=== PATIENT | male | born 1950 | race Caucasian/White ===

== ENCOUNTER 2020-01-24 07:24 | Inpatient (IN) | payer MEDICARE, OTHER ==
[~2020-01-24] VITALS: Ht 177.8 cm; Wt 105.2 kg
[2020-01-24] MEDS ORDERED: NAPROXEN250 MG PO (07:49)
--- NOTE | 2020-01-24 10:00 | NUR ---
PATIENT ARRIVED TO ROOM VIA STRETCHER WITH JEFFY VERNON. TRANSFERRED SELF TO BED STAND AND PIVOT. SLIGHTLY UNSTEADY ON FEET. SOME SLURRING OF SPEACH, BUT OVERALL FEELS WELL. VSS, BUT BP ELEVATED-- REPORTEDLY NORMAL FOR HIM.
--- NOTE | 2020-01-24 10:28 | NUR ---
PATIENT ADMITTED TO MED SURG, ORIENTED TO ROOM. PATIENT DENIES PAIN OR NAUSEA. PATIENT IS ORIENTED X3, PATIENT DOES SLUR WORDS, INDICATES HIS SPOUSE NOTED THIS WAS IMPROVING. PATIENT HAS NUMBNESS AND TINGLING IN RIGHT HAND AND RIGHT FOOT, EQUAL STRENGTH NOTED IN HAND SPORTS THERAPIST, NO DRIFTING NOTED ON ARMS OR LEGS.
--- NOTE | 2020-01-24 10:51 | NUR ---
PATIENT UP TO BATHROOM TO VOID WITH ONE ASSIST. PATIENT IS MODERATELY UNSTEADY ON FEET, SOMEWHAT IMPULSIVE. PATIENT SAID, "I USUALLY FALL DOWN A COUPLE OF TIMES A DAY AT HOME." PATIENT SITTING UP AT BEDSIDE, BED ALARM IS ON.
--- NOTE | 2020-01-24 11:09 | NUR ---
DR. WELLS IN TO SEE PATIENT. PATIENT TO HAVE CAROTID DOPPLER/ECHO. PATIENT IS HOPING TO GO HOME TOMORROW.
--- NOTE | 2020-01-24 11:28 | NUR ---
pt having carotid echo done now. salty arriaza assessed patient and admitted patietn to the room.
--- NOTE | 2020-01-24 13:15 | NUR ---
PT HAS JUST ARRIVED IN FROM ED. TREATING FOR STROKE, PT SAID HIS FEET ARE STARTING TO MOVE AGAIN. WILL LET GET SETTLED IN , GAVE BLESSING. PT THANKED ME WILL FOLLOW
--- NOTE | 2020-01-24 15:51 | NUR ---
pt resting with lights dimmed in room. denies any needs at this time.
--- NOTE | 2020-01-24 17:44 | NUR ---
NEW ED ADMIT. CVA OBSURVATION. RIGHT HAND NUMB AND SLURRED SPEECH BUT REPORTS ITS CLOSE TO BASELINE. ETOH ABUSE-- 1 GALLON LIQUOR/WEEK AND 6 16OZ BEERS/DAY. SALINE LOCKED. PT/OT/ST. STANDBY ASSIST. ALERT AND ORIENTED. TELE 7.
--- NOTE | 2020-01-24 19:45 | NUR ---
CHARGE NURSE ROUNDING NOTE: AWAKE, NO C/O PAIN, CALL LIGHT AND FLUIDS AT BEDSIDE.
--- NOTE | 2020-01-24 21:38 | EKG ---
[facility] [address] [place], [place] [address] Signed Sinus rhythm with marked sinus arrhythmia Otherwise normal ECG No previous ECGs available Confirmed by EUGENE WELLS DO ([id number]) on 01/24/2020 9:37:53 PM Electronically Signed By: EUGENE WELLS DO 01/24/20 2138 PATIENT NAME: OLGAYePAULA Electrocardiogram DATE OF : 50 PHYSICIAN: EUGENE WELLS DO REPORT #: [id number] REPORT IS CONFIDENTIAL AND NOT TO BE RELEASED WITHOUT AUTHORIZATION
--- NOTE | 2020-01-25 03:10 | NUR ---
PATIENT HAS BEEN RESTING WELL SINCE EVENING MED PASS, NO C/O ANYTHING. ONE UNMEASURED VOID, DRANK 200MLS. CALL LIGHT IN REACH. PATIENT GOING BACK TO SLEEP, CALL LIGHT IN REACH.
--- NOTE | 2020-01-25 08:48 | NUR ---
VERY BUSY NIGHT WITH OTHER PATIENT'S, PATIENT HAS MAINLY BEEN INDEPENDANT, BED ALARM JUST TO KNOW WHEN HE GETS UP. HAS HAD NO DEFICITS FOR ME THIS SHIFT AND HAS BEEN TIRED, BUT ORIENTED. PATIENT SAYS HE IS GOING TO NEED TO LEAVE AMA, BECAUSE HE IS FEELING MUCH BETTER AND HAS THINGS HE NEEDS TO GO HOME AND GET DONE. am nURSE AWARE OF THIS REQUEST. CALL LIGHT IN REACH.
--- NOTE | 2020-01-25 09:40 | NUR ---
DR. WELLS IN TO SEE PATIENT.
[2020-01-25] MEDS ORDERED: ASPIRIN81 MG PO (09:51)
[2020-01-25] MEDS ORDERED: LIPITOR40 MG PO (09:51)
[2020-01-25] MEDS ORDERED: NICOTINE PATCH1 EACH TD (09:52)
[2020-01-25] MEDS ORDERED: LISINOPRIL10 MG PO (10:06)
--- NOTE | 2020-01-25 10:34 | NUR ---
ASSESSMENT COMPLETED. PATIENT VERBALIZES NEED TO GO HOME DUE TO PRIOR ENGAGEMENTS. DENIES PAIN AT THIS TIME. CALL LIGHT IN REACH, BED RAILS UP X2. TAKES AM MEDICATIONS PRESCRIBED. DENIES OTHER NEEDS.
== END 2020-01-25 10:20 | disposition home or self-care (01) | DRG 65 ==
LOC: ED 07:24 → MS 07:26
PROVIDERS: ADMIT Student in an Organized Health Care Education/Training Program
DX: I63.59 Cerebral infarction due to unspecified occlusion or stenosis of other cerebral artery (principal); G81.91 Hemiplegia, unspecified affecting right dominant side; R47.81 Slurred speech; I10 Essential (primary) hypertension; F17.210 Nicotine dependence, cigarettes, uncomplicated; F10.20 Alcohol dependence, uncomplicated; K70.10 Alcoholic hepatitis without ascites; M19.91 Primary osteoarthritis, unspecified site
CPT/HCPCS: 36415; 70450; 71045; 80053; 80061; 83036; 83735; 84484; 85025; 85610; 85730; 93005; 93010; 93306; 93880; 97162; 99285-25; C9803; J1650; U0002

== ENCOUNTER 2020-02-12 17:10 | Emergency (ER) | payer MEDICARE ==
[~2020-02-12] VITALS: Ht 182.9 cm; Wt 105.2 kg
[~2020-02-12 17:10] MED LIST: ASPIRIN81 MG PO; LIPITOR40 MG PO; LISINOPRIL10 MG PO; NAPROXEN250 MG PO; NICOTINE PATCH1 EACH TD
--- OUTSIDE RECORDS SUMMARY | 2020-02-12 17:14 | XMS ---
PreManage Notification: PAULA DELAROSA Security Engineer Conductor Events No recent Security Events currently on file CRITERIA MET - [facility] - 2 Visits in 30 Days CARE PROVIDERS There are no care providers on record at this time. Chau has no Care Guidelines for this patient. Tamra VISIT COUNT (12 MO.) 2 [facility] [place] [facility]. TOTAL 2 NOTE: Visits indicate total known visits. ED/C VISIT TRACKING (12 MO.) 02/12/2020 17:[address] [facility] [place] TYPE: Emergency COMPLAINT: - MEDICATION REFILL 01/24/2020 07:25 [facility] TYPE: Emergency COMPLAINT: - STROKE SYMPTOMS INPATIENT VISIT TRACKING (12 MO.) 01/24/2020 11:37 [facility] [place] TYPE: Medical Surgical COMPLAINT: - STROKE DIAGNOSES: - Primary osteoarthritis, unspecified site - Essential (primary) hypertension - Alcoholic hepatitis without ascites - Alcohol dependence, uncomplicated - Alcoholic hepatitis without ascites - Essential (primary) hypertension - Hemiplegia, unspecified affecting right dominant side - Slurred speech - Nicotine dependence, cigarettes, uncomplicated - Hemiplegia, unspecified affecting right dominant side - Cerebral infarction due to unspecified occlusion or stenosis - Nicotine dependence, cigarettes, uncomplicated - Slurred speech - Primary osteoarthritis, unspecified site - Alcohol dependence, uncomplicated [email or web address]
== END 2020-02-12 17:40 | disposition home or self-care (01) ==
LOC: ED 17:10
DX: Z76.0 Encounter for issue of repeat prescription (principal)

== ENCOUNTER 2024-05-25 14:27 | Inpatient (IN) | payer MEDICARE ==
[~2024-05-25] VITALS: Ht 182.9 cm; Wt 92.6 kg
[2024-05-25] MEDS ORDERED: methylPREDNISolone SOD SUCC 125 MG/2 ML VIAL IV ONE (14:45)
[2024-05-25] MEDS ORDERED: ALBUTEROL/IPRATROPIUM 3 ML NEB INH ONE (14:45)
[2024-05-25 14:57] LABS: HEMATOCRIT 39.7 % (35.0-50.0); HEMOGLOBIN 13.9 g/dL (12.0-18.0); MCH 33.4 (27-36); MCHC 35.1 g/dl (30-36); MCV 95.1 fl (81-99); PLATELET COUNT 103 K/uL (140-440); RBC 4.18 M/ul (4.3-5.7); RDW 13.2 (10.5-15.0)
[2024-05-25 15:00] LABS: PARTIAL THROMBOPLASTIN TIME 30.3 Sec (22.9-41.3)
[2024-05-25] MEDS ORDERED: DILTIAZEM HCl/D5W 125 ML IV ONE (15:00)
[2024-05-25] MEDS ORDERED: dilTIAZem HCL 25 MG/5 ML VIAL IV ONE (15:00)
[2024-05-25 15:01] LABS: INR 1.5 (0.80-1.30); PROTIME 17.3 Sec (11.2-14.2)
[2024-05-25 15:10] LABS: BANDS, MANUAL DIFF 1; LYMPHOCYTES, MANUAL DIFF 1; MONOCYTES, MANUAL DIFF 2; NEUTROPHILS, MANUAL DIFF 96
[2024-05-25 15:14] LABS: ALBUMIN 2.9 g/dL (3.4-5.0); ALBUMIN/GLOBULIN RATIO 0.76 (1.1-2.4); ALCOHOL, MEDICAL <3 ng/dL (<3); ALKALINE PHOSPHATASE 98 U/L (46-116); ALT (SGPT) 13 U/L (14-59); ANION GAP 17.7 (7-21); AST (SGOT) 29 U/L (15-37); BILIRUBIN, TOTAL 2.6 ng/dL (0.2-1.0); CALCIUM 8.7 mg/dL (8.5-10.1); CARBON DIOXIDE 23 mmol/L (21-32); CHLORIDE 86 mmol/L (98-107); CREATININE, SERUM 1.25 mg/dL (0.70-1.30); GLOMERULAR FILTRATION RATE,EST 61 mL/min (>60); POTASSIUM 3.7 mmol/L (3.5-5.1); PROTEIN, TOTAL 6.7 g/dL (6.4-8.2); TSH, 3RD GENERATION 1.229 uIU/mL (0.358-3.740); UREA NITROGEN 19 mg/dL (7-18)
[2024-05-25] MEDS ORDERED: CEFTRIAXONE/SODIUM CHLORIDE 2 GM/100 ML PIGGYBACK IV ONE (15:30)
[2024-05-25] MEDS ORDERED: AZITHROMYCIN/DEXTROSE 500 MG/250 ML PIGGYBACK IV ONE (15:30)
[2024-05-25 15:32] LABS: INFLUENZA B NAA NEGATIVE (NEGATIVE); RESPIRATORY SYNCYTIAL VIR NAA NEGATIVE (NEGATIVE)
[2024-05-25] MEDS ORDERED: SODIUM CHLORIDE 0.9% 1,000 ML IV PRN (15:45)
[2024-05-25 16:02] LABS: LACTIC ACID, BLOOD 2.9 mmol/L (0.4-2.0)
[2024-05-25 17:28] LABS: LACTIC ACID, BLOOD 2.5 mmol/L (0.4-2.0)
[2024-05-25] MEDS ORDERED: LIDOCAINE 2% VISCOUS 6 ML SYR TOP ONE (17:30)
[2024-05-25 17:51] LABS: BILIRUBIN, URINE POSITIVE (negative); BLOOD/HGB, URINE LARGE (Negative); KETONE, URINE TRACE (Negative); LEUK ESTERASE, URINE NEGATIVE (negative); NITRITE, URINE POSITIVE (negative); PH, URINE 5.5 (5-7)
[2024-05-25 17:56] LABS: EPITHELIAL CELLS, URINE 0 /lpf (0-1+)
[2024-05-25 17:58] LABS: CRYSTALS, URINE NONE SEEN (0-1+); RED BLOOD CELLS, URINE >50 /hpf (0-5)
[2024-05-25 18:01] LABS: BACTERIA, URINE 1+ /hpf (negative); CASTS, URINE NONE SEEN \\lpf; COLLECTION TYPE, URINE CLEAN CATCH; REFLEX CULTURE, URINE No (No)
[2024-05-25 18:13] LABS: AMPHETAMINES, URINE NEGATIVE (NEGATIVE); BARBITURATES, URINE NEGATIVE (NEGATIVE); BENZODIAZEPINE, URINE NEGATIVE (NEGATIVE); BUPRENORPHINE, URINE NEGATIVE (NEGATIVE); CANNABINOID, URINE NEGATIVE (NEGATIVE); COCAINE, URINE NEGATIVE (NEGATIVE); ECSTASY, URINE NEGATIVE (NEGATIVE); FENTANYL, URINE NEGATIVE (NEGATIVE); METHADONE, URINE NEGATIVE (NEGATIVE); OPIATES, URINE NEGATIVE (NEGATIVE); OXYCODONE, URINE NEGATIVE (NEGATIVE); PHENCYCLIDINE, URINE NEGATIVE (NEGATIVE)
[2024-05-25] MEDS ORDERED: LACTATED RINGER'S 1,000 ML IV SCH (19:00)
[2024-05-25] MEDS ORDERED: ACETAMINOPHEN 325 MG TAB PO PRN (19:00)
[2024-05-25] MEDS ORDERED: NICOTINE POLACRILEX 4 MG LOZENGE BUCCAL PRN (19:00)
[2024-05-25] MEDS ORDERED: NICOTINE 14 MG/24 HR 1 EA TDSY TD SCH (19:01)
[2024-05-25] MEDS ORDERED: SODIUM CHLORIDE 0.9% 1,000 ML IV SCH (19:15)
[2024-05-25] MEDS ORDERED: LORazepam 2 MG/ML VIAL IV/IM PRN (20:00)
[2024-05-25] MEDS ORDERED: ALBUTEROL/IPRATROPIUM 3 ML NEB INH SCH (20:00)
[2024-05-25 20:11] VITALS: BP 129/76
--- NOTE | 2024-05-25 20:20 | NUR ---
pt ARRIVED TO THE FLOOR VIA STRETCHER. pt SCOOTED FROM THE STRETCHER TO THE BED ON HIS OWN. CHIEF DIETITIAN AND THIS RN IN TO DO ASSESSMENT AND VITAL SIGNS AND ADMISSION. pt ALERT AND ORIENTED. pt LUNG SOUNDS ARE CLEAR. NO OTHER NEEDS AT THIS TIME. CALL LIGHT WITHIN REACH.
[2024-05-25] MEDS ORDERED: APIXABAN 5 MG TAB PO SCH (21:00)
[2024-05-25] MEDS ORDERED: ATORVASTATIN 40 MG TAB PO SCH (21:00)
[2024-05-25] MEDS ORDERED: MELATONIN 3 MG TAB PO PRN (21:00)
[2024-05-25] MEDS ORDERED: BUDESONIDE 0.5 MG/2 ML VIAL INH SCH (21:39)
[2024-05-25] MEDS ORDERED: metroNIDAZOLE 250 MG TAB PO SCH (22:00)
--- NOTE | 2024-05-25 22:00 | NUR ---
pt RESTING IN THE BED. pt DENIES ANY NEEDS AT THIS TIME. CALL LIGHT WITHIN REACH.
[2024-05-25] MEDS ORDERED: ALBUTEROL SULFATE 0.083% 3 ML VIAL INH PRN (23:00)
[2024-05-25 23:39] VITALS: BP 129/76
[2024-05-26] VITALS (11 sets, daily range): BP systolic 94–130; BP diastolic 53–66
--- NOTE | 2024-05-26 01:30 | NUR ---
IN RM TO DO VS. NEEDING TO PEE DO TO PROTOCOL. pt STATES HE DOESN'T THINK HE COULD GO. BLADDER SCANNED AT 375. DENIES THE NEED TO GO. NO OTHER NEEDS AT THIS TIME. CALL LIGHT WITHIN REACH.
--- NOTE | 2024-05-26 02:55 | NUR ---
PHONE CALL PLACED TO MD ABOUT pt BLADDER SCAN VOLUME. MD PLACED NEW ORDERS. ORDERS VERIFIED WITH REPEAT BACK METHOD.
--- NOTE | 2024-05-26 02:55 | NUR ---
MANAGER STRATEGY & ACCOUNT BLADDER SCANNED PT AT PRIMARY RN REQUEST. BLADDERSCANNER SHOWED 425 ML. RN NOTIFED. PT STATES THAT HE DOESNT FEEL THE NEED TO GO. PT STATES NO NEEDS AT THIS TIME. CALL LIGHT WITHIN REACH.
--- NOTE | 2024-05-26 03:38 | NUR ---
STRAIGHT CATH ATTEMPTED BY THIS BUDDHIST MONK WITH 14F STRAIGHT CATH KIT, RESISTANCE MET. CATH UNSUCCESSFUL. BLOOD PRESENT ON TIP OF CATH WHEN REMOVED FROM URETHRA. ATTEMPT MADE WITH 14F COUDE TIP SUCCESSFUL. IMMEDIATE RETURN OF ~500 ML TEA COLORED, FOUL SMELLING URINE. PT TOLERATED WELL. CATH REMOVED. SMALL AMOUNT OF BLOOD PRESENT ON COUDE CATH, AND AT TIP OF PENIS. CLEANSED. PT DENIES FURTHER NEEDS. CALLLIGHT IN REACH. BED ALARM ACTIVE. ROOM IN VIEW OF RN STATION.
[2024-05-26 05:22] LABS: BASOPHILS 0.2 % (0-2); EOSINOPHILS 0.1 % (0-6); HEMATOCRIT 34.6 % (35.0-50.0); HEMOGLOBIN 12.5 g/dL (12.0-18.0); LYMPHOCYTES 1.2 % (24-44); MCHC 36.2 g/dl (30-36); MCV 93.9 fl (81-99); MONOCYTES 2.6 % (0-12); NEUTROPHILS 95.9 % (39-80); PLATELET COUNT 74 K/uL (140-440); RBC 3.68 M/ul (4.3-5.7); RDW 13.2 (10.5-15.0)
[2024-05-26 05:33] LABS: ANION GAP 14.5 (7-21); BUN/CREATININE RATIO 21.35 (6.0-28.6); CALCIUM 8.4 mg/dL (8.5-10.1); CREATININE, SERUM 1.03 mg/dL (0.70-1.30); MAGNESIUM 1.3 mg/dL (1.8-2.4); PHOSPHORUS, INORGANIC 2.6 mg/dL (2.5-4.9); POTASSIUM 3.5 mmol/L (3.5-5.1)
--- NOTE | 2024-05-26 05:36 | NUR ---
VITAL SIGNS DONE. pt RESTING IN THE BED. pt DENIES THE NEED TO PEE. pt DENIES ANY OTHER NEEDS AT THIS TIME. CALL LIGHT WITHIN REACH.
--- NOTE | 2024-05-26 07:46 | NUR ---
GOT REPORT FROM FRENCH TEACHER NURSE.
[2024-05-26] MEDS ORDERED: ALBUTEROL/IPRATROPIUM 3 ML NEB INH SCH (08:00)
--- NOTE | 2024-05-26 08:16 | NUR ---
INTO CHECK ON PATIENT.MORNING MEDICAITONS GIVEN. LISINOPRIL HELD BECAUSE OF BLOOD PRESSURE. PATIENT DENIED WANTING ANYTHING TO EAT WITH PILLS. ANTIBIOTIC IV RUNNING. PATIENT ROOM CLEANED UP. BED IN LOW POSTION. CALL LIGHT WITHIN REACH. PATIENT DENIES ANY OTHER CARES AT THIS TIME. RT IN TO GIVE BREATHING TREATMENT. PATIENT WAS ON PHONE WITH FRIEND AND OVERHEARD HIM TELL HIM THAT HE WOULD BE READY TO LEAVE TODAY HE WAS NOT GOING TO STAY.
[2024-05-26] MEDS ORDERED: THIAMINE HCL 200 MG/2 ML VIAL IV SCH (09:00)
[2024-05-26] MEDS ORDERED: AZITHROMYCIN 250 MG TAB PO SCH (09:00)
[2024-05-26] MEDS ORDERED: TAMSULOSIN HCL 0.4 MG CAP PO SCH (09:00)
[2024-05-26] MEDS ORDERED: lisinopriL 10 MG TAB PO SCH (09:00)
[2024-05-26] MEDS ORDERED: CEFTRIAXONE/SODIUM CHLORIDE 2 GM/100 ML PIGGYBACK IV SCH (09:00)
[2024-05-26] MEDS ORDERED: THIAMINE HCL 100 MG TAB PO SCH (09:00)
[2024-05-26] MEDS ORDERED: METOPROLOL SUCCINATE 25 MG TABCR PO SCH (09:00)
[2024-05-26] MEDS ORDERED: predniSONE 20 MG TAB PO SCH (09:00)
[2024-05-26] MEDS ORDERED: THIAMINE HCL 100 MG in SODIUM CHLORIDE 0.9% 100 ML IV SCH (09:00)
--- NOTE | 2024-05-26 09:52 | NUR ---
MORNING ASSESSEMENT DONE. AT BEDSIDE. PATIENT IS WAITING FOR PT THIS MORNING. PATIENT HAS IV FLUIDS RUNNING. PATIENT ATE A GOOD BREAKFAST. PATIENT STATES HE DOES NOT FEEL LIKE HE NEEDS TO URINATE. PATIENT HAS NICOTINE PATCH ON HIS RIGHT SHOULDER. RA. BED ALARM ON. FRESH WATER GIVEN. LIGHTS TURNED ON. TELE LEADS ON.
[2024-05-26] MEDS ORDERED: MAGNESIUM SULFATE 2 GM/50 ML BAG IV ONE (10:00)
[2024-05-26] MEDS ORDERED: POLYETHYLENE GLYCOL 3350 1 PACKET PO SCH (10:40)
[2024-05-26] MEDS ORDERED: SENNOSIDES/DOCUSATE 1 EA TAB PO SCH (10:41)
[2024-05-26] MEDS ORDERED: GUAIFENESIN/DEXTROMETHORPHAN 5 ML SYRUP PO PRN (11:15)
[2024-05-26] MEDS ORDERED: hydrOXYzine pamoate 25 MG CAP PO PRN (11:15)
[2024-05-26] MEDS ORDERED: ATORVASTATIN CA80 MG PO (11:28)
[2024-05-26] MEDS ORDERED: METOPROLOL SUCC25 MG PO (11:29)
--- NOTE | 2024-05-26 11:42 | NUR ---
PATIENT HAS NOT HAD A BOWEL MOVEMENT SINCE 05.22.24. PER PATIENT HE GOES EACH DAY. MEDICATIONS GIVEN. SEE EMAR. PATIENT UP AND IN CHAIR.
[2024-05-26] MEDS ORDERED: PHARMACY RENAL DOSE ADJUSTMENT 1 DOSE MISC PO SCH (12:00)
--- NOTE | 2024-05-26 13:30 | NUR ---
REPORT RECEIVED FROM ELKIN RN - PRIMARY CARE ASSUMED FOR PT. PT RESTING IN RECLINER WITH CALL LIGHT AT SIDE.
--- NOTE | 2024-05-26 16:23 | NUR ---
MED REC COMPLETE
[2024-05-26] MEDS ORDERED: LIDOCAINE 2% VISCOUS 6 ML SYR TOP PRN (17:00)
--- NOTE | 2024-05-26 17:10 | NUR ---
PATIENT REFUSED DINNER, NO VOID ALL DAY. NURSE NOTIFIED.
--- NOTE | 2024-05-26 17:37 | NUR ---
NOTIFIED BY TELEPHONE OF PT INABILITY TO VOID URINE WITH ZERO OUTPUT SINCE STRAIGHT CATH IN AM. ORDER RECEIVED FOR INDWELLING CATHETER R/T CHRONIC OBSTRUCTION. PT ON ABX CURRENTLY FOR UTI RELATED TO INABILTY TO VOID FREQUENTLY AT HOME.
--- NOTE | 2024-05-26 19:33 | NUR ---
RECEIVED REPORT FROM DAY SHIFT RN. PATIENT IS RESTING IN BED WATCHING TV. PATIENT DENIES ANY NEEDS. CALL LIGHT IN REACH.
--- NOTE | 2024-05-26 20:23 | NUR ---
PATIENTS VITALS TAKEN AND RECORDED. PATIENTS SEVERINO EMPTIED AND SEVERINO CARE COMPLETED. PATIENTS INTAKE AND OUTPUT RECORDED. ASSESMENT COMPLETED. PATIENTS IV INFUSING PER ORDER. PATIENTS PM MEDS GIVEN PER ORDER. PATIENT DENIES ANY PAIN OR NAUSEA. UPDATE PATIENT ON PLAN OF CARE AND ANSWERED ALL QUESTIONS. PATIENT DENIES ANY FURTHER NEEDS. AT BEDSIDE. PATIENTS CALL LIGHT AND BELONGINGS ARE WITHIN REACH.
--- NOTE | 2024-05-26 22:08 | NUR ---
PATIENT REPORTS PAIN IN HIS HANDS, PRN MEDICATION GIVEN PER ORDER. PATIENT REQUESTING SLEEP AID, PNR MEDICATION GIVEN PER ORDER. PATIENTS LIGHTS TURNED OFF. FRESH ICE WATER PROVIDED. PATIENT DENIES ANY FURTHER NEEDS. CALL LIGHT IN REACH. BED ALARM ON FOR SAFETY. SEVERINO DRAINING AYDIN COLORED URINE. IV INFUSING PER ORDER.
--- NOTE | 2024-05-26 22:45 | NUR ---
PATIENT IS RESTING IN BED WITH EYES CLOSED, RR 15. CALL LIGHT IN REACH. BED ALARM ON FOR SAFETY. IV INFUSING PER ORDER.
[2024-05-27] VITALS (10 sets, daily range): BP systolic 97–128; BP diastolic 54–80
--- NOTE | 2024-05-27 00:07 | NUR ---
PATIENT AWOKE WHEN THIS RN ENTERED ROOM TO ROUND ON PATIENT. PATIENT DENIES ANY PAIN OR SOB. PATIENT PROVIDED FRESH ICE WATER. PATIENT DENIES ANY FURTHER NEEDS. CALL LIGHT IN REACH. IV INFUSING PER ORDER. BED WALRM ON FOR PATIENT SAFETY.
--- NOTE | 2024-05-27 02:57 | NUR ---
PATIENTS VITALS TAKEN AND RECORDED. SEVERINO EMPTIED. INTAKE AND OUTPUT RECORDED. IV INFUSING PER ORDER. PATIENT DENIES ANY NEEDS. CALL RAGHU EAST. BED ALARM ON FOR SAFETY.
--- NOTE | 2024-05-27 03:59 | NUR ---
PATIENT IS RESTING IN BED WITH EYES CLOSED, RR 17. TELE #1, HR 71. CALL LIGHT IN REACH. BED ALARM ON FOR SAFETY. IV INFUSING PER ORDER.
[2024-05-27 05:50] LABS: BASOPHILS 0.2 % (0-2); EOSINOPHILS 0.1 % (0-6); HEMATOCRIT 32.5 % (35.0-50.0); HEMOGLOBIN 11.6 g/dL (12.0-18.0); LYMPHOCYTES 2.4 % (24-44); MCH 33.6 (27-36); MCHC 35.7 g/dl (30-36); MCV 94.1 fl (81-99); MONOCYTES 4.6 % (0-12); NEUTROPHILS 92.7 % (39-80); PLATELET COUNT 71 K/uL (140-440); RBC 3.45 M/ul (4.3-5.7); RDW 13.1 (10.5-15.0)
[2024-05-27 05:58] LABS: ANION GAP 10.3 (7-21); BUN/CREATININE RATIO 27.84 (6.0-28.6); CALCIUM 8.8 mg/dL (8.5-10.1); CREATININE, SERUM 0.79 mg/dL (0.70-1.30); POTASSIUM 3.3 mmol/L (3.5-5.1)
[2024-05-27 06:03] LABS: MAGNESIUM 1.8 mg/dL (1.8-2.4); PHOSPHORUS, INORGANIC 2.6 mg/dL (2.5-4.9)
--- NOTE | 2024-05-27 06:59 | NUR ---
PATIENTS VITALS TAKEN AND RECORDED. INTAKE AND OUTPUT RECORDED. PATIENT DENIES ANY PAIN OR SOB. PATIENT DENIES ANY NEEDS. CALL LIGHT IN REACH. COFFEE PROVIDED. IV INFUSING PER ORDER. BED ALARM ON FOR SAFETY.
--- NOTE | 2024-05-27 07:45 | NUR ---
REPORT RECEIVED FROM NIGHT RN - PT RESTING IN BED AWAKE WATCHING TV. CALL LIGHT IN REACH, DENIES NEEDS AT THIS TIME.
--- NOTE | 2024-05-27 08:07 | NUR ---
Board has been updated and call light has been placed within reach. Call light has been placed within reach
[2024-05-27] MEDS ORDERED: POTASSIUM CHLORIDE 10 MEQ TABCR PO ONE (09:00)
--- NOTE | 2024-05-27 09:51 | NUR ---
ASSESSMENT COMPLETE - PT SITTING UP ON EDGE OF BED WORKING WITH PHYSICAL THERAPY. HR ELEVATED WITH ANY MOVEMENT TO 120'S. SP02 WHILE AMBULATING 92% ON ROOM AIR HOWEVER HE IS SOB WITH EXP WHEEZING. PT UNSTEADY ON FEET WITH USING FWW, PT IS NOT RECEPTIVE TO INSTRUCTION.
[2024-05-27] MEDS ORDERED: FOLIC ACID 1 MG TAB PO SCH (10:00)
[2024-05-27] MEDS ORDERED: CYANOCOBALAMIN 1,000 MCG TAB PO SCH (10:00)
--- NOTE | 2024-05-27 12:15 | EKG ---
[facility] [address] [place] [address] Signed Atrial fibrillation with rapid ventricular response with premature ventricular or aberrantly conducted complexes Abnormal ECG When compared with ECG of 24-JAN-2020 07:45, Atrial fibrillation has replaced Sinus rhythm Confirmed by Mckinley Menjivar MD ([id number]) on 05/27/2024 12:15:43 PM Electronically Signed By: MCKINLEY MENJIVAR DO 05/27/24 1215 PATIENT NAME: OLGAYePAULAALFONSO RAMON Electrocardiogram DATE OF : 50 PHYSICIAN: MCKINLEY MENJIVAR DO REPORT #: [id number] REPORT IS CONFIDENTIAL AND NOT TO BE RELEASED WITHOUT AUTHORIZATION
[2024-05-27 19:19] LABS: BUN/CREATININE RATIO 28.12 (6.0-28.6); CALCIUM 8.4 mg/dL (8.5-10.1); CREATININE, SERUM 0.96 mg/dL (0.70-1.30); MAGNESIUM 1.8 mg/dL (1.8-2.4)
--- NOTE | 2024-05-27 19:47 | NUR ---
RECEIVED REPORT FROM DAY SHIFT RN. PATIENT INCONT OIF STOOL. PATIENT ASSISTED TO THE BR A 1PA W/FWW. PATIENT HAD LOOSE STOOL. PATIENTS UNDERWEAR THREW AWAY PER PATIENT REQUEST. PATIENT DAX IN BED RESTING. PATIENT NOTED TO BE SOB W/ACTIVITY. PATIENT SATURATIONS CHECKED AND PATIENTS OXYGEN IS 88 AND RECOVERED TO 95%. PATIENT REMAINS ON RA. PATIENT IS BACK IN BED RESTING. PATIENT DENIES ANY FURTHER NEEDS. CALL LIGHT IN REACH. IV INFUSING PER ORDER. BED ALARM ON FOR SAFETY.
--- NOTE | 2024-05-27 20:50 | NUR ---
PATIENTS OM MEDS GIVEN PER ORDER. IV INFUSING PER ORDER. PATIENT DENIES ANY PAIN. RT INROOM TO EVAL PATIENT. PATIENT RECEIVING NEB TX. RT INTRUCTING PATIENT ON ACAPELLA. PATIENT NOTED TO HAVE INCREASED SPUTUM. PATIENT INSTUCTED TO COUGH UPO SPUTUM. PATIENT VERBALIZED UNDERSTANDING. PATIENT ASSESMENT COMPELTED. IV INFUSING PER ORDER. PATIENT DENIES ANY NEEDS. CALL LIGHT IN REACH. BED ALARM ON FOR SAFETY.
--- NOTE | 2024-05-27 21:37 | NUR ---
PATIENT IS RESTING IN BED WATCHING TV. PATIENT IS RESTING IN BED WATCHING TV. PATIENTS LIGHTS TURNED OFF AND WARM BLANKET PROVIDED. IV INFUSING PER ORDER. PATIENT DENIES ANY NEEDS. CALL LIGHT IN REACH. BED ALARM ON FOR SAFETY.
--- NOTE | 2024-05-27 22:06 | NUR ---
PATIENT IS RESTING IN BED WITH EYES CLOSED, RR 18. CALL LIGHT IN REACH. IV INFUSING PER ORDER BED ALARM ON FOR SAFETY.
[2024-05-27] MEDS ORDERED: INHALER, ASSIST DEVICES 1 EACH SPACER MISC SCH (23:00)
[2024-05-28] VITALS (7 sets, daily range): BP systolic 120–139; BP diastolic 65–80
--- NOTE | 2024-05-28 00:04 | NUR ---
PATIENT IS RESTING IN BED WITH EYES CLSOED, RR 17. TELE #1, HR 77. CALL LIGHT IN REACH. BED ALARM ON OFR SAFETY. IV INFUSING PER ORDER.
--- NOTE | 2024-05-28 00:43 | NUR ---
BED ALARM ALERTED STAFF. PATIENT ASSISTED TO THE BR A 1PA W/FWW. PATIENT HAD MEDIUM LOOSE BM. PATIENT IS BACK IN BED RESTING. PATIENT DENIES ANY PAIN. VITALS TAKEN AND RECORDED. INTAKE AND OUTPUT RECORDED. IV INFUSING PER ORDER. PATIENT DENIES ANY FURTHER NEEDS. SIDNEY LIGHT IN REACH. BED ALARM ON FOR SAFETY.
--- NOTE | 2024-05-28 01:55 | NUR ---
PATIENT IS RESTING IN BED WITH EYES CLOSED, RR 17. TELE #1, HR 77. NAD NOTED. CALL LIGHT IN REACH. BED ALARM ON FOR SAFETY. IV INFUSING PER ORDER.
--- NOTE | 2024-05-28 04:00 | NUR ---
PATIENT IS RESTING IN BED WITH EYES CLSOED, RR 17. CALL LIGHT IN REACH. BED ALARM ON FOR SAFETY.
--- NOTE | 2024-05-28 05:08 | NUR ---
PATIENTS BED ALARM SOUNDED. PATIENT TRYING TO REACH PHONE. PATIENT ASSISTED TO GET PHONE. PATIENT IS AAOX4. PATIENT DENIES ANY PAIN OR SOB. PATIENTS VITLAS TAKEN ADN RECORDED. SEVERINO EMPTIED. INTAKE AND OUTPUT RECORDED. COFFEE PROVIDED. PATIENTS QUESTIONS ASNWERED ABOUT CATHETER AND NEED TO POSSIBLY SEE UROLOGIST. PATIENT VERBALIZED UNDERSTANDING. PATIENT DENIES ANY FURTHER NEEDS. CALL LIGHT IN REACH. BED ALARM ON FOR SAFETY. IV INFUSING PER ORDER.
[2024-05-28 05:26] LABS: BASOPHILS 0.2 % (0-2); HEMATOCRIT 33.4 % (35.0-50.0); HEMOGLOBIN 11.8 g/dL (12.0-18.0); LYMPHOCYTES 4.7 % (24-44); MCH 33.5 (27-36); MCHC 35.5 g/dl (30-36); MCV 94.5 fl (81-99); NEUTROPHILS 89.1 % (39-80); PLATELET COUNT 91 K/uL (140-440); RBC 3.53 M/ul (4.3-5.7); RDW 13.2 (10.5-15.0)
[2024-05-28 05:50] LABS: ANION GAP 11.6 (7-21); BUN/CREATININE RATIO 25.64 (6.0-28.6); CALCIUM 8.3 mg/dL (8.5-10.1); CREATININE, SERUM 0.78 mg/dL (0.70-1.30); MAGNESIUM 1.7 mg/dL (1.8-2.4); POTASSIUM 3.6 mmol/L (3.5-5.1)
--- NOTE | 2024-05-28 06:33 | NUR ---
PATIENT IS RESTING IN BED WATCHING TV AND DRINKING COFFEE. PATIENT DENIES ANY NEEDS. CALL LIGHT IN REACH. IV INFUSING PER ORDER. BED ALARM ON FOR SAFETY.
--- NOTE | 2024-05-28 07:30 | NUR ---
UR CLINICAL REVIEW: 2 MN FOR [facility]ERSALUS-MEETS INPT CRITERIA FOR PNEUMONIA MEDICARE INPT 05/25/24 @ 1901 ORDER MATCHES REG NO AUTH REQUIRED PER MEDICARE GUIDELINES DISCHARGE TO HOME ANTICIPATED IN 1-2 DAYS
--- NOTE | 2024-05-28 07:37 | NUR ---
REPORT RECEIVED FROM NIGHT RN - PT AWAKE IN BED WATCHING TV. PT STATES HE DOESNT WANT BREAKFAST IN FEAR IT WILL MAKE HIM HAVE MORE BM. PT REQUIRING CONTINUED EXPLANATION/EDUCATION OF DISEASE PROCESS. DENIES NEEDS AT THIS TIME. CALL LIGHT IN REACH.
--- NOTE | 2024-05-28 09:15 | NUR ---
PT UP IN CHAIR, DID NOT EAT BREAKFAST. PT NEEDING CONTINUED EDUCATION ABOUT DISEASE PROCESS, LACK OF COMPREHENSION REGARDING TODAYS LAB RESULTS AND MEDICATION USES. CURRENTLY WORKING WITH OT IN ROOM.
--- NOTE | 2024-05-28 10:05 | NUR ---
Upon entering the room Mr Morales is found in the bedside chair, awake and alert. IMM letter explained to the patient, Derick expresses his desire to "go home today", explained that this is a decision made by the hospitalist, Derick states "I am ready to go home, I want to go home." Mr [facility] willingly signs his IMM letter, again reinterating that he wants to go home. A signed copy of the letter is given to Derick. Derick has no further questions for this RN regarding his IMM letter.
--- NOTE | 2024-05-28 10:52 | NUR ---
PATIENT CALLED THIS MORNING BEFORE BREAKFAST GOT HERE TO USE THE BATHROOM AFTER HE WAS DONE THAN WE WALKED TO HIS CHAIR PATIENT USING HIS WALKER.
--- NOTE | 2024-05-28 12:13 | NUR ---
ALERT AND ORIENTED IN BED. STATES HE LIVES IN 3 STORY HOME WITH , BERNIE, AND ROOMMATE. PATIENT HAS BATHROOM AND BEDROOM ON MAIN LEVEL. HE HAS A CANE AND A ROLLATER BUT DOES NOT USE EITHER. HE DRIVES BASELINE WITHOUT ISSUES. DENIES [employer] FINANCIAL HARDSHIP WITH PAYING UTILITIES, OBTAINING FOOD OR MEDICATIONS. DISCUSSED PATIENT NEED FOR OUTPATIENT THERAPIES. STATES HE IS OK WITH GOING TO [facility] OUTPATIENT PT FOR THERAPIES. HE WAS UNDER THE IMPRESSION HE COULD HAVE HOME HEALTH, DISCUSSED QUALIFICATIONS FOR HOME HEALTH AND INFORMED PATIENT HE DOES NOT QUALIFY SINCE HE REMAINS ABLE TO LEAVE HIS HOME. VERBALIZES UNDERSTANDING. PLANS TO DC TO HOME WITH WHEN STABLE.
--- NOTE | 2024-05-28 12:20 | NUR ---
FIELD TAX AUDITOR IN ROOM TO COMPLETE STUDY.
[2024-05-28] MEDS ORDERED: PREDNISONE20 MG PO (13:52)
[2024-05-28] MEDS ORDERED: CEFUROXIME500 MG PO (13:53)
[2024-05-28] MEDS ORDERED: METRONIDAZOLE500 MG PO (13:53)
[2024-05-28] MEDS ORDERED: SYMBICORT 16010.2 GM INH (13:54)
[2024-05-28] MEDS ORDERED: ELIQUIS5 MG PO (13:54)
--- NOTE | 2024-05-28 14:56 | NUR ---
PT NOT AVAILABLE FOR VISIT. PROVIDED PRAYER.
--- NOTE | 2024-05-28 15:08 | NUR ---
ORDERS, CLINICALS, PT/OT NOTES FAXED TO [facility]. PHYSICAN FEELS PATIENT IS HOME BOUND UNTIL HE WORKS WITH PT/OT FOR STRENGTHEING, THEN OUTPATIENT COULD EVENTUALLY BE AN OPTION.
== END 2024-05-28 15:10 | disposition home or self-care (01) | DRG 871 ==
LOC: ED 14:27 → MS 19:04
PROVIDERS: Emergency Medicine; ADMIT Student in an Organized Health Care Education/Training Program; ATTEND Student in an Organized Health Care Education/Training Program
PROC: 3E03329 Introduction of Other Anti-infective into Peripheral Vein, Percutaneous Approach (ICD-10-PCS; principal; 2024-05-25)
PROC: 0T9B70Z Drainage of Bladder with Drainage Device, Via Natural or Artificial Opening (ICD-10-PCS; 2024-05-25)
DX: A41.9 Sepsis, unspecified organism (principal); J18.9 Pneumonia, unspecified organism; J69.0 Pneumonitis due to inhalation of food and vomit; E87.1 Hypo-osmolality and hyponatremia; J44.1 Chronic obstructive pulmonary disease with (acute) exacerbation; N39.0 Urinary tract infection, site not specified; J44.0 Chronic obstructive pulmonary disease with (acute) lower respiratory infection; I24.89 Other forms of acute ischemic heart disease; F17.210 Nicotine dependence, cigarettes, uncomplicated; D69.6 Thrombocytopenia, unspecified; F10.10 Alcohol abuse, uncomplicated; I48.91 Unspecified atrial fibrillation; E78.5 Hyperlipidemia, unspecified; I10 Essential (primary) hypertension; N40.1 Benign prostatic hyperplasia with lower urinary tract symptoms; R33.8 Other retention of urine; Z90.49 Acquired absence of other specified parts of digestive tract; Z86.73 Personal history of transient ischemic attack (TIA), and cerebral infarction without residual deficits; Z79.82 Long term (current) use of aspirin; Z79.899 Other long term (current) drug therapy; Z79.811 Long term (current) use of aromatase inhibitors; Z98.890 Other specified postprocedural states; Z79.01 Long term (current) use of anticoagulants
CPT/HCPCS: 36415; 51701; 70450; 71045; 80048; 80053; 80307; 81001; 82140; 83605; 83735; 83880; 84100; 84443; 84484; 85025; 85610; 85730; 87502; 93005; 93010; 93306; 94640; 94668; 94760; 97162; 97165; 97530; 97535; 99285-25; 99406; A9270; G0480; J0456; J0696; J2919; J3475; J7030; J7512; Q0177; U0002

== ENCOUNTER 2024-06-05 17:46 | Emergency (ER) | payer MEDICARE ==
[~2024-06-05] VITALS: Ht 182.9 cm; Wt 99.0 kg
[~2024-06-05 17:46] MED LIST changes: +ATORVASTATIN CA80 MG PO; +CEFUROXIME500 MG PO; +ELIQUIS5 MG PO; +METOPROLOL SUCC25 MG PO; +METRONIDAZOLE500 MG PO; +PREDNISONE20 MG PO; +SYMBICORT 16010.2 GM INH
[2024-06-05] MEDS ORDERED: FLOMAX0.4 MG PO (21:39)
[2024-06-05] MEDS ORDERED: LIDOCAINE 2% VISCOUS 6 ML SYR TOP ONE (21:45)
[2024-06-05 22:00] VITALS: BP 157/85
[2024-06-05] MEDS ORDERED: TAMSULOSIN HCL 0.4 MG CAP PO ONE (22:00)
== END 2024-06-05 22:02 | disposition home or self-care (01) ==
LOC: ED 17:46
DX: N32.0 Bladder-neck obstruction (principal); I10 Essential (primary) hypertension; F17.200 Nicotine dependence, unspecified, uncomplicated; Z86.73 Personal history of transient ischemic attack (TIA), and cerebral infarction without residual deficits; Z79.02 Long term (current) use of antithrombotics/antiplatelets; Z79.52 Long term (current) use of systemic steroids; Z79.51 Long term (current) use of inhaled steroids; Z79.899 Other long term (current) drug therapy; Z53.29 Procedure and treatment not carried out because of patient's decision for other reasons
CPT/HCPCS: 51798; 99283

== ENCOUNTER 2024-08-24 11:19 | Emergency (ER) | payer MEDICARE ==
[~2024-08-24] VITALS: Ht 182.9 cm; Wt 98.0 kg
[~2024-08-24 11:19] MED LIST changes: +FLOMAX0.4 MG PO; +WARFARIN SODIU2.5 MG PO; +WARFARIN SODIUM5 MG PO
[2024-08-24] MEDS ORDERED: CIPROFLOXACIN500 MG PO (11:36)
[2024-08-24] MEDS ORDERED: VENTOLIN HFA18 GM INH (11:36)
[2024-08-24] MEDS ORDERED: MECLIZINE HCL25 MG PO (11:36)
[2024-08-24 11:59] LABS: BASOPHILS 0.5 % (0-2); EOSINOPHILS 0.3 % (0-6); HEMATOCRIT 37.4 % (35.0-50.0); LYMPHOCYTES 6.1 % (24-44); MCH 32.2 (27-36); MCHC 34.8 g/dl (30-36); MCV 92.3 fl (81-99); NEUTROPHILS 83.1 % (39-80); PLATELET COUNT 81 K/uL (140-440); RBC 4.05 M/ul (4.3-5.7)
[2024-08-24 12:29] LABS: ALBUMIN/GLOBULIN RATIO 0.86 (1.1-2.4); ANION GAP 13.7 (7-21); BILIRUBIN, TOTAL 1.6 mg/dL (0.2-1.0); BUN/CREATININE RATIO 24.13 (6.0-28.6); CALCIUM 8.9 mg/dL (8.5-10.1); CREATININE, SERUM 0.87 mg/dL (0.70-1.30); POTASSIUM 3.7 mmol/L (3.5-5.1); PROTEIN, TOTAL 6.5 g/dL (6.4-8.2)
[2024-08-24 14:44] LABS: BILIRUBIN, URINE NEGATIVE (negative); BLOOD/HGB, URINE NEGATIVE (Negative); KETONE, URINE TRACE (Negative); LEUK ESTERASE, URINE NEGATIVE (negative); NITRITE, URINE NEGATIVE (negative)
[2024-08-24 14:53] LABS: BACTERIA, URINE NONE SEEN /hpf (negative); CASTS, URINE NONE SEEN \\lpf; COLLECTION TYPE, URINE CLEAN CATCH; CRYSTALS, URINE NONE SEEN (0-1+); EPITHELIAL CELLS, URINE SQUAMOUS 1+ /lpf (0-1+); RED BLOOD CELLS, URINE 0-1 /hpf (0-5); REFLEX CULTURE, URINE No (No); WHITE BLOOD CELLS, URINE 0-1 /HPF (0-5)
[2024-08-24 15:50] VITALS: BP 133/79
--- NOTE | 2024-08-26 21:31 | EKG ---
[facility] [address] [place] [address] Signed Accelerated Junctional rhythm with frequent premature ventricular complexes Rightward axis T wave abnormality, consider inferior ischemia Abnormal ECG When compared with ECG of 25-MAY-2024 14:51, Junctional rhythm has replaced Atrial fibrillation T wave inversion now evident in Inferior leads Nonspecific T wave abnormality now evident in Lateral leads Confirmed by Corinne Menjivar DO ([id number]) on 08/26/2024 9:30:56 PM Electronically Signed By: CORINNE MENJIVAR DO [id number] PATIENT NAME: PAULA DELAROSA Electrocardiogram DATE OF : 50 PHYSICIAN: CORINNE MENJIVAR DO REPORT #: [id number] REPORT IS CONFIDENTIAL AND NOT TO BE RELEASED WITHOUT AUTHORIZATION
== END 2024-08-24 15:50 | disposition home or self-care (01) ==
LOC: ED 11:19
PROVIDERS: Emergency Medicine
DX: M54.50 Low back pain, unspecified (principal); G89.29 Other chronic pain; J18.9 Pneumonia, unspecified organism; I10 Essential (primary) hypertension; F17.200 Nicotine dependence, unspecified, uncomplicated; Z79.899 Other long term (current) drug therapy
CPT/HCPCS: 36415; 70450; 72131; 80053; 81001; 84484; 85025; 93005; 93010; 99285-25